=== PATIENT | female | born 1965 | race Caucasian/White ===

== ENCOUNTER 2019-04-11 20:13 | Inpatient (IN) ==
[2019-04-11 21:04] LABS: Bilirubin,Urine Negative (Negative); Blood,Urine Negative (Negative); Clarity,Urine Turbid (Clear); Color,Urine Yellow (Yellow); Glucose,Urine (UA) Normal (Normal); Ketones,Urine Trace mg/dL (Negative); Leukocyte Esterase,Urine Large (Negative); Nitrite,Urine Negative (Negative); Protein,Urine Negative (Neg-Trace); Specific Gravity,Urine 1.019 (1.010-1.025); Urobilinogen,Urine Normal (Normal)
[2019-04-11 21:06] LABS: Bacteria,Urine Many per hpf (None-Few); Hyaline Casts,Urine Few per lpf (None-Few); Squamous Epithelial Cell,Urine Many per lpf (None-Few); WBC,Urine 50-100 per hpf (0-3)
[2019-04-11 21:07] LABS: Basophils # 0.1 K/mcL (0.0-0.2); Basophils % 0.5 %; Eosinophils # 0.3 K/mcL (0.0-0.6); Hematocrit 40.3 % (35.3-44.9); Hemoglobin 12.9 g/dL (11.5-15.4); Immature Granulocytes % 0.3 % (0-4); Lymphocytes % 20.9 %; Mean Corpuscular Hemoglobin 29.9 pg (28.0-33.3); Mean Corpuscular Volume 93.3 fL (83.0-100.0); Monocytes # 1.1 K/mcL (0.0-1.3); Monocytes % 11.1 %; Neutrophils # 6.1 K/mcL (1.6-8.9); Platelet Count 264 K/mcL (140-400); Red Blood Count 4.32 M/mcL (3.82-4.97); Red Cell Distribution Width 13.1 % (11.5-14.5); Segmented Neutrophils % 64.2 %; White Blood Count 9.6 K/mcL (4.3-11.1)
[2019-04-11 21:15] LABS: Amphetamine Screen,Urine Negative ng/mL (Cutoff=1000); Barbiturate Screen,Urine Negative ng/mL (Cutoff=200); Benzodiazepines Screen,Urine Negative ng/mL (Cutoff=200); Cannabinoid Screen,Urine Negative ng/mL (Cutoff = 50); Cocaine Screen,Urine Negative ng/mL (Cutoff= 300); Opiate Screen,Urine Negative ng/mL (Cutoff=300); Phencyclidine Screen,Urine Negative ng/mL (Cutoff=25)
[2019-04-11 21:27] LABS: Acetaminophen < 10 mcg/mL (10-20); BUN/Creatinine Ratio 13 (6-26); Blood Urea Nitrogen 11 mg/dL (6-20); Calcium 10.1 mg/dL (8.6-10.3); Carbon Dioxide 22 mEq/L (23-29); Chloride 106 mEq/L (98-107); Ethanol < 10 mg/dL (Less than 10); Glucose 112 mg/dL (70-105); Osmolality,Calculated 288 (280-300); Potassium 3.1 mEq/L (3.5-5.1); Salicylate < 2.5 mg/dL (15.0-30.0); Sodium 139 mEq/L (136-145); eGFR For African Americans > 60 (> 60); eGFR For Non-African Americans > 60 (> 60)
[2019-04-11] MEDS ORDERED: cephALEXin 250 MG CAPSULE PO ONE (21:34)
[2019-04-11] MEDS ORDERED: Potassium Effervescent 25 MEQ TABLET.EFF PO ONE (21:34)
[2019-04-11] MEDS ORDERED: *HR* LORazepam 2 MG/ML VIAL IM ONE (23:45)
[2019-04-11] MEDS ORDERED: Haloperidol Lactate 5 MG/ML VIAL IM ONE (23:45)
[2019-04-12] MEDS ORDERED: *HR* LORazepam 1 MG TABLET PO PRN (00:49)
[2019-04-12] MEDS ORDERED: Ibuprofen 400 MG TABLET PO PRN (00:49)
[2019-04-12] MEDS ORDERED: MOM Conc 10 ML UD.LIQ PO PRN (00:49)
[2019-04-12] MEDS ORDERED: Mag Hydrox/Al Hydrox/Simeth 30 ML UDC PO PRN (00:49)
[2019-04-12] MEDS ORDERED: *HR* LORazepam 2 MG/ML VIAL IM PRN (00:49)
[2019-04-12] MEDS: Famotidine 20 MG TABLET PO SCH (09:56)
[2019-04-12] MEDS: hydrOXYzine pamoate 25 MG CAPSULE PO PRN ×3 (09:56→21:48)
[2019-04-12] MEDS: risperiDONE 0.25 MG TABLET PO SCH ×2 (09:57→21:48)
[2019-04-12] MEDS: OXcarbazepine 150 MG TABLET PO SCH ×2 (09:58→21:48)
[2019-04-12] MEDS ORDERED: Ipratropium/Albuterol Neb 3 ML IH PRN (10:00)
[2019-04-12 11:58] LABS: Estimated Average Glucose 108 mg/dl
[2019-04-12] MEDS: traZODone 50 MG TABLET PO PRN (21:48)
[2019-04-13] MEDS: hydrOXYzine pamoate 25 MG CAPSULE PO PRN (04:15)
[2019-04-13] MEDS: risperiDONE 0.25 MG TABLET PO SCH ×2 (08:44→21:10)
[2019-04-13] MEDS: OXcarbazepine 150 MG TABLET PO SCH ×2 (08:45→21:11)
[2019-04-13] MEDS: Famotidine 20 MG TABLET PO SCH (08:45)
[2019-04-14] MEDS: traZODone 50 MG TABLET PO PRN ×2 (01:07→21:34)
[2019-04-14] MEDS: OXcarbazepine 150 MG TABLET PO SCH ×2 (08:46→21:34)
[2019-04-14] MEDS: Famotidine 20 MG TABLET PO SCH (08:46)
[2019-04-14] MEDS: risperiDONE 0.25 MG TABLET PO SCH ×2 (08:46→21:34)
[2019-04-15] MEDS: OXcarbazepine 150 MG TABLET PO SCH ×2 (09:28→20:32)
[2019-04-15] MEDS: Famotidine 20 MG TABLET PO SCH (09:28)
[2019-04-15] MEDS: risperiDONE 0.25 MG TABLET PO SCH ×2 (09:29→20:31)
[2019-04-15] MEDS: traZODone 50 MG TABLET PO PRN (20:32)
[2019-04-15] MEDS: hydrOXYzine pamoate 25 MG CAPSULE PO PRN (20:32)
[2019-04-16] MEDS: OXcarbazepine 150 MG TABLET PO SCH ×2 (08:03→21:12)
[2019-04-16] MEDS: Famotidine 20 MG TABLET PO SCH (08:03)
[2019-04-16] MEDS: risperiDONE 0.25 MG TABLET PO SCH (08:04)
[2019-04-16] MEDS: traZODone 50 MG TABLET PO PRN (21:12)
[2019-04-16] MEDS: hydrOXYzine pamoate 25 MG CAPSULE PO PRN (21:12)
[2019-04-16] MEDS: risperiDONE 1 MG TABLET PO SCH (21:12)
[2019-04-17] MEDS: Famotidine 20 MG TABLET PO SCH (08:43)
[2019-04-17] MEDS: OXcarbazepine 150 MG TABLET PO SCH ×2 (08:44→21:20)
[2019-04-17] MEDS: risperiDONE 1 MG TABLET PO SCH ×2 (08:44→21:20)
[2019-04-17] MEDS: hydrOXYzine pamoate 25 MG CAPSULE PO PRN (21:20)
[2019-04-17] MEDS: traZODone 50 MG TABLET PO PRN (21:20)
[2019-04-18] MEDS: hydrOXYzine pamoate 25 MG CAPSULE PO PRN ×2 (02:28→21:21)
[2019-04-18] MEDS: OXcarbazepine 150 MG TABLET PO SCH ×2 (09:14→21:21)
[2019-04-18] MEDS: Famotidine 20 MG TABLET PO SCH (09:14)
[2019-04-18] MEDS: risperiDONE 1 MG TABLET PO SCH ×2 (09:15→21:20)
[2019-04-18] MEDS: traZODone 50 MG TABLET PO PRN (21:21)
[2019-04-19] MEDS: risperiDONE 1 MG TABLET PO SCH ×2 (09:58→21:14)
[2019-04-19] MEDS: Famotidine 20 MG TABLET PO SCH (09:58)
[2019-04-19] MEDS: OXcarbazepine 150 MG TABLET PO SCH ×2 (09:59→21:14)
[2019-04-19] MEDS: hydrOXYzine pamoate 25 MG CAPSULE PO PRN (21:18)
[2019-04-20] MEDS: risperiDONE 1 MG TABLET PO SCH (08:35)
[2019-04-20] MEDS: Famotidine 20 MG TABLET PO SCH (08:36)
[2019-04-20] MEDS: OXcarbazepine 150 MG TABLET PO SCH (08:36)
[2019-04-20 09:16] VITALS: BP 146/85
== END 2019-04-20 10:55 | disposition home or self-care (01) | DRG 885 ==
LOC: EMEROOARM 20:13 → 1ANU 23:56
PROVIDERS: ADMIT Psychiatry & Neurology Psychiatry; ATTEND Psychiatry & Neurology Psychiatry

== ENCOUNTER 2021-10-02 10:48 | Inpatient (IN) ==
[2021-10-02 11:33] LABS: Basophils # 0.1 K/mcL (0.0-0.2); Basophils % 0.7 %; Eosinophils % 0.3 %; Hematocrit 47.4 % (35.3-44.9); Hemoglobin 15.6 g/dL (11.5-15.4); Immature Granulocytes % 0.3 % (0-4); Lymphocytes # 1.6 K/mcL (0.6-4.6); Mean Corpuscular HGB Conc 32.9 g/dL (31.6-35.5); Mean Corpuscular Hemoglobin 30.2 pg (28.0-33.3); Mean Corpuscular Volume 91.9 fL (83.0-100.0); Mean Platelet Volume 9.5 fL (9.4-12.4); Monocytes # 0.6 K/mcL (0.0-1.3); Neutrophils # 5.1 K/mcL (1.6-8.9); Platelet Count 277 K/mcL (140-400); Red Blood Count 5.16 M/mcL (3.82-4.97); Red Cell Distribution Width 13.6 % (11.5-14.5); Segmented Neutrophils % 68.7 %; White Blood Count 7.4 K/mcL (4.3-11.1)
[2021-10-02 11:52] LABS: Acetaminophen < 10 mcg/mL (10-20); BUN/Creatinine Ratio 16 (6-26); Blood Urea Nitrogen 16 mg/dL (6-20); Carbon Dioxide 20 mEq/L (23-29); Chloride 107 mEq/L (98-107); Ethanol < 10 mg/dL (Less than 10); Glucose 129 mg/dL (70-105); Osmolality,Calculated 289 (280-300); Potassium 3.7 mEq/L (3.5-5.1); Salicylate < 2.5 mg/dL (15.0-30.0); Sodium 138 mEq/L (136-145); eGFR For African Americans > 60 (> 60); eGFR For Non-African Americans 59 (> 60)
[2021-10-02 12:02] LABS: Bilirubin,Urine Negative (Negative); Blood,Urine Trace (Negative); Clarity,Urine Clear (Clear); Color,Urine Yellow (Yellow); Glucose,Urine (UA) Normal (Normal); Ketones,Urine Negative (Negative); Leukocyte Esterase,Urine Moderate (Negative); Nitrite,Urine Negative (Negative); Protein,Urine 50 mg/dL (Neg-Trace); Specific Gravity,Urine > 1.030 (1.010-1.025); Urobilinogen,Urine Normal (Normal)
[2021-10-02 12:06] LABS: WBC,Urine 15-30 per hpf (0-3)
[2021-10-02 12:07] LABS: Bacteria,Urine Few per hpf (None-Few); Squamous Epithelial Cell,Urine Few per hpf (None-Few)
[2021-10-02] MEDS ORDERED: cephALEXin 500 MG CAPSULE PO ONE (12:09)
[2021-10-02 12:15] LABS: Amphetamine Screen,Urine Negative ng/mL (Cutoff=1000); Barbiturate Screen,Urine Negative ng/mL (Cutoff=200); Benzodiazepines Screen,Urine Negative ng/mL (Cutoff=200); Cannabinoid Screen,Urine Negative ng/mL (Cutoff = 50); Cocaine Screen,Urine Negative ng/mL (Cutoff= 300); Opiate Screen,Urine Negative ng/mL (Cutoff=300); Phencyclidine Screen,Urine Negative ng/mL (Cutoff=25)
[2021-10-02] MEDS ORDERED: OXcarbazepine 150 MG TABLET PO ONE (14:54)
[2021-10-02] MEDS ORDERED: risperiDONE 1 MG TABLET PO SCH (15:00)
[2021-10-02 18:27] LABS: Influenza A PCR Negative (Negative); Influenza B PCR Negative (Negative); Resp. Syncytial Virus PCR Negative (Negative)
[2021-10-02 18:39] LABS: SARS-CoV-2 by PCR (In House) Negative (Negative)
[2021-10-02] MEDS ORDERED: *HR* LORazepam 2 MG/ML VIAL IM PRN (19:49)
[2021-10-02] MEDS ORDERED: Haloperidol Lactate 5 MG/ML VIAL IM PRN (19:49)
[2021-10-03] MEDS: Acetaminophen 325 MG TABLET PO PRN ×3 (02:00→20:14)
[2021-10-03] MEDS: QUEtiapine Fumarate 25 MG TABLET PO PRN ×2 (02:00→20:14)
[2021-10-03] MEDS: hydrOXYzine pamoate 25 MG CAPSULE PO PRN ×2 (02:01→20:13)
[2021-10-03] MEDS ORDERED: Mag Hydrox/Al Hydrox/Simeth 30 ML UDC PO PRN (02:02)
[2021-10-03] MEDS: haloperidoL 5 MG TABLET PO PRN (03:09)
[2021-10-03] MEDS: *HR* LORazepam 1 MG TABLET PO PRN (03:09)
[2021-10-03] MEDS: risperiDONE 1 MG TABLET PO SCH ×2 (09:10→20:13)
[2021-10-03] MEDS: OXcarbazepine 150 MG TABLET PO SCH ×2 (09:10→20:13)
[2021-10-03] MEDS: lisinopriL 10 MG TABLET PO SCH (11:27)
[2021-10-03] MEDS: Gabapentin 100 MG CAPSULE PO SCH (20:13)
[2021-10-03] MEDS ORDERED: chlorproMAZINE 25 MG TABLET PO STA (21:51)
[2021-10-04] MEDS: Acetaminophen 325 MG TABLET PO PRN ×2 (05:30→11:03)
[2021-10-04] MEDS: OXcarbazepine 150 MG TABLET PO SCH ×2 (08:49→20:51)
[2021-10-04] MEDS: lisinopriL 10 MG TABLET PO SCH (08:49)
[2021-10-04] MEDS: Gabapentin 100 MG CAPSULE PO SCH ×2 (08:49→20:51)
[2021-10-04] MEDS: risperiDONE 1 MG TABLET PO SCH ×2 (08:49→20:51)
[2021-10-04] MEDS: QUEtiapine Fumarate 25 MG TABLET PO PRN (20:51)
[2021-10-04] MEDS: hydrOXYzine pamoate 25 MG CAPSULE PO PRN (21:43)
[2021-10-05] MEDS: OXcarbazepine 150 MG TABLET PO SCH ×2 (09:06→20:58)
[2021-10-05] MEDS: Gabapentin 100 MG CAPSULE PO SCH ×2 (09:06→20:57)
[2021-10-05] MEDS: risperiDONE 1 MG TABLET PO SCH ×2 (09:06→20:58)
[2021-10-05] MEDS: lisinopriL 10 MG TABLET PO SCH ×2 (09:06→09:40)
[2021-10-05] MEDS ORDERED: NON-FORMULARY MEDICATION 1 EACH EACH (Albuterol Sulfate 8.5 GM Hfa.Aer.Ad) IH PRN (09:23)
[2021-10-05] MEDS ORDERED: NON-FORMULARY MEDICATION 1 EACH EACH (Famotidine [Pepcid] 40 MG Tablet) PO SCH (09:30)
[2021-10-05] MEDS: Famotidine 20 MG TABLET PO SCH ×2 (09:40→20:58)
[2021-10-05 13:42] LABS: Estimated Average Glucose 108 mg/dl; Hemoglobin A1C 5.4 %
[2021-10-05 14:11] LABS: Albumin 3.8 g/dL (3.5-5.7); Albumin/Globulin Ratio 1.2 (1.1-2.2); Bilirubin,Indirect 0.4 mg/dL (0.0-1.0); Bilirubin,Total 0.4 mg/dL (0.3-1.0); Chol/HDL Ratio 2.5 (0-4.9); Globulin 3.2 g/dL (2.4-3.5); Thyroid Stimulating Hormone 0.624 mcIU/mL (0.340-5.600)
[2021-10-05] MEDS: Acetaminophen 325 MG TABLET PO PRN (18:47)
[2021-10-05] MEDS: hydrOXYzine pamoate 25 MG CAPSULE PO PRN (18:48)
[2021-10-05 19:45] LABS: Bacteria,Urine Few per hpf (None-Few); Bilirubin,Urine Negative (Negative); Blood,Urine Negative (Negative); Clarity,Urine Clear (Clear); Color,Urine Light-Yellow (Yellow); Glucose,Urine (UA) Normal (Normal); Ketones,Urine Negative (Negative); Leukocyte Esterase,Urine Large (Negative); Mucus,Urine Few per lpf (None-Few); Nitrite,Urine Negative (Negative); PH,Urine 5.5 pH Units (5.0-8.0); Protein,Urine Trace mg/dL (Neg-Trace); RBC,Urine 0-3 per hpf (0-3); Renal Epithelial Cells,Urine Few per hpf (None-Few); Specific Gravity,Urine 1.025 (1.010-1.025); Squamous Epithelial Cell,Urine Few per hpf (None-Few); Transitional Epi Cells,Urine Few per hpf (None-Few); Urobilinogen,Urine Normal (Normal); WBC,Urine 15-30 per hpf (0-3)
[2021-10-05] MEDS: QUEtiapine Fumarate 100 MG TABLET PO SCH (20:58)
[2021-10-06] MEDS: risperiDONE 1 MG TABLET PO SCH (08:37)
[2021-10-06] MEDS: Gabapentin 100 MG CAPSULE PO SCH ×2 (08:38→20:52)
[2021-10-06] MEDS: lisinopriL 10 MG TABLET PO SCH (08:38)
[2021-10-06] MEDS: Famotidine 20 MG TABLET PO SCH ×2 (08:39→20:52)
[2021-10-06] MEDS: OXcarbazepine 150 MG TABLET PO SCH ×2 (08:39→20:52)
[2021-10-06] MEDS: QUEtiapine Fumarate 100 MG TABLET PO SCH (20:52)
[2021-10-06] MEDS ORDERED: RisperiDAL 3 MG TABLET PO SCH (21:00)
[2021-10-07] MEDS ORDERED: risperiDONE 1 MG TABLET PO SCH (09:00)
[2021-10-07] MEDS: Famotidine 20 MG TABLET PO SCH ×2 (10:02→20:58)
[2021-10-07] MEDS: OXcarbazepine 150 MG TABLET PO SCH ×2 (10:02→20:57)
[2021-10-07] MEDS: lisinopriL 10 MG TABLET PO SCH (10:04)
[2021-10-07] MEDS: Gabapentin 100 MG CAPSULE PO SCH ×2 (10:04→20:58)
[2021-10-07] MEDS: hydrOXYzine pamoate 25 MG CAPSULE PO PRN (10:08)
[2021-10-07] MEDS: *HR* LORazepam 1 MG TABLET PO PRN (10:33)
[2021-10-07] MEDS: haloperidoL 5 MG TABLET PO PRN (10:33)
[2021-10-07] MEDS: QUEtiapine Fumarate 100 MG TABLET PO SCH (20:58)
[2021-10-07] MEDS: RisperiDAL 3 MG TABLET PO SCH (20:58)
[2021-10-08] MEDS: Gabapentin 100 MG CAPSULE PO SCH ×2 (09:14→21:57)
[2021-10-08] MEDS: lisinopriL 10 MG TABLET PO SCH (09:15)
[2021-10-08] MEDS: RisperiDAL 3 MG TABLET PO SCH ×2 (09:15→21:56)
[2021-10-08] MEDS: Famotidine 20 MG TABLET PO SCH ×2 (09:15→21:57)
[2021-10-08] MEDS: OXcarbazepine 150 MG TABLET PO SCH ×2 (09:15→21:56)
[2021-10-08 13:08] LABS: Basophils # 0.1 K/mcL (0.0-0.2); Basophils % 0.7 %; Eosinophils # 0.2 K/mcL (0.0-0.6); Hematocrit 41.2 % (35.3-44.9); Immature Granulocytes % 0.1 % (0-4); Lymphocytes # 1.8 K/mcL (0.6-4.6); Lymphocytes % 23.9 %; Mean Corpuscular HGB Conc 33.3 g/dL (31.6-35.5); Mean Corpuscular Volume 93.2 fL (83.0-100.0); Mean Platelet Volume 9.2 fL (9.4-12.4); Monocytes # 0.6 K/mcL (0.0-1.3); Platelet Count 276 K/mcL (140-400); Red Blood Count 4.42 M/mcL (3.82-4.97); Red Cell Distribution Width 14.1 % (11.5-14.5); Segmented Neutrophils % 65.3 %; White Blood Count 7.6 K/mcL (4.3-11.1)
[2021-10-08 13:15] LABS: Hemoglobin 13.7 g/dL (11.5-15.4)
[2021-10-08 13:29] LABS: Alanine Aminotransferase 28 Units/L (7-52); Albumin 3.8 g/dL (3.5-5.7); Albumin/Globulin Ratio 1.2 (1.1-2.2); Alkaline Phosphatase 110 Units/L (34-104); Aspartate Amino Transferase 21 Units/L (13-39); BUN/Creatinine Ratio 26 (6-26); Bilirubin,Total 0.3 mg/dL (0.3-1.0); Blood Urea Nitrogen 22 mg/dL (6-20); Calcium 9.6 mg/dL (8.6-10.3); Carbon Dioxide 22 mEq/L (23-29); Chloride 106 mEq/L (98-107); Globulin 3.1 g/dL (2.4-3.5); Glucose 90 mg/dL (70-105); Osmolality,Calculated 289 (280-300); Potassium 4.3 mEq/L (3.5-5.1); Sodium 138 mEq/L (136-145); Total Protein 6.9 g/dL (6.4-8.9); eGFR For African Americans > 60 (> 60); eGFR For Non-African Americans > 60 (> 60)
[2021-10-08] MEDS: *HR* LORazepam 1 MG TABLET PO PRN (15:10)
[2021-10-08] MEDS: haloperidoL 5 MG TABLET PO PRN (15:10)
[2021-10-08] MEDS: QUEtiapine Fumarate 100 MG TABLET PO SCH (21:56)
[2021-10-09] MEDS: OXcarbazepine 150 MG TABLET PO SCH ×2 (09:12→20:27)
[2021-10-09] MEDS: Gabapentin 100 MG CAPSULE PO SCH ×2 (09:12→20:27)
[2021-10-09] MEDS: lisinopriL 10 MG TABLET PO SCH (09:12)
[2021-10-09] MEDS: Famotidine 20 MG TABLET PO SCH ×2 (09:12→20:26)
[2021-10-09] MEDS: RisperiDAL 3 MG TABLET PO SCH ×2 (09:13→20:26)
[2021-10-09] MEDS ORDERED: Paliperidone Palmitate 234 MG/1.5 ML SYRINGE IM SCH (10:30)
[2021-10-09] MEDS: *HR* LORazepam 0.5 MG TABLET PO SCH ×3 (11:51→20:26)
[2021-10-09] MEDS ORDERED: Perflutren Lipid Microsphere 1.3 ML in 0.9 % Sodium Chloride 8.7 ML IVP PRN (13:52)
[2021-10-09 14:20] LABS: BUN/Creatinine Ratio 21 (6-26); Blood Urea Nitrogen 21 mg/dL (6-20); Calcium 9.9 mg/dL (8.6-10.3); Carbon Dioxide 22 mEq/L (23-29); Chloride 104 mEq/L (98-107); Glucose 104 mg/dL (70-105); Osmolality,Calculated 285 (280-300); Potassium 4.2 mEq/L (3.5-5.1); Sodium 136 mEq/L (136-145); eGFR For African Americans > 60 (> 60); eGFR For Non-African Americans 58 (> 60)
[2021-10-09] MEDS ORDERED: Isovue-370 500 ML BOTTLE IVP ONE ×2 (15:32→18:00)
[2021-10-09 16:58] LABS: Bacteria,Urine Few per hpf (None-Few); Bilirubin,Urine Negative (Negative); Blood,Urine Negative (Negative); Clarity,Urine Clear (Clear); Color,Urine Light-Yellow (Yellow); Glucose,Urine (UA) Normal (Normal); Hyaline Casts,Urine Few per lpf (None Seen); Ketones,Urine Negative (Negative); Leukocyte Esterase,Urine Moderate (Negative); Mucus,Urine Few per lpf (None-Few); Nitrite,Urine Negative (Negative); PH,Urine 5.5 pH Units (5.0-8.0); Protein,Urine Negative (Neg-Trace); RBC,Urine 0-3 per hpf (0-3); Specific Gravity,Urine 1.022 (1.010-1.025); Squamous Epithelial Cell,Urine Few per hpf (None-Few); Urobilinogen,Urine Normal (Normal); WBC,Urine 15-30 per hpf (0-3)
[2021-10-09] MEDS: QUEtiapine Fumarate 100 MG TABLET PO SCH (20:26)
[2021-10-10] MEDS: Famotidine 20 MG TABLET PO SCH ×2 (09:05→21:11)
[2021-10-10] MEDS: Gabapentin 100 MG CAPSULE PO SCH ×2 (09:05→21:11)
[2021-10-10] MEDS: OXcarbazepine 150 MG TABLET PO SCH ×2 (09:05→21:11)
[2021-10-10] MEDS: *HR* LORazepam 0.5 MG TABLET PO SCH ×3 (09:05→21:11)
[2021-10-10] MEDS: RisperiDAL 3 MG TABLET PO SCH (09:05)
[2021-10-10] MEDS: lisinopriL 10 MG TABLET PO SCH (09:05)
[2021-10-10] MEDS: QUEtiapine Fumarate 100 MG TABLET PO SCH (21:11)
[2021-10-11] MEDS: *HR* LORazepam 0.5 MG TABLET PO SCH ×3 (08:33→20:28)
[2021-10-11] MEDS: OXcarbazepine 150 MG TABLET PO SCH ×2 (08:34→20:27)
[2021-10-11] MEDS: lisinopriL 10 MG TABLET PO SCH (08:34)
[2021-10-11] MEDS: Famotidine 20 MG TABLET PO SCH ×2 (08:34→20:28)
[2021-10-11] MEDS: Gabapentin 100 MG CAPSULE PO SCH ×2 (08:34→20:28)
[2021-10-11] MEDS: QUEtiapine Fumarate 100 MG TABLET PO SCH (20:27)
[2021-10-12] MEDS: *HR* LORazepam 0.5 MG TABLET PO SCH ×3 (08:35→21:49)
[2021-10-12] MEDS: Famotidine 20 MG TABLET PO SCH ×2 (08:35→21:49)
[2021-10-12] MEDS: Gabapentin 100 MG CAPSULE PO SCH ×2 (08:35→21:48)
[2021-10-12] MEDS: lisinopriL 10 MG TABLET PO SCH (08:35)
[2021-10-12] MEDS: OXcarbazepine 150 MG TABLET PO SCH ×2 (08:37→21:49)
[2021-10-12] MEDS: QUEtiapine Fumarate 100 MG TABLET PO SCH (21:49)
[2021-10-13] MEDS: Gabapentin 100 MG CAPSULE PO SCH (08:15)
[2021-10-13] MEDS: OXcarbazepine 150 MG TABLET PO SCH (08:16)
[2021-10-13] MEDS: *HR* LORazepam 0.5 MG TABLET PO SCH (08:16)
[2021-10-13] MEDS: Famotidine 20 MG TABLET PO SCH (08:19)
[2021-10-13] MEDS: lisinopriL 10 MG TABLET PO SCH (08:20)
[2021-10-13 09:10] VITALS: BP 132/87; PULSE 99; TEMP 98.1; O2SAT 97
[2021-10-13] MEDS ORDERED: Paliperidone Palmitate 156 MG/ML SYRINGE IM SCH (11:45)
== END 2021-10-13 13:00 | disposition home or self-care (01) | DRG 885 ==
LOC: EMEROOARM 10:48 → 1ANU 19:34 → SUATTDRO 19:34 → 1ANU 21:21
PROVIDERS: ADMIT Psychiatry & Neurology Psychiatry; ATTEND Student in an Organized Health Care Education/Training Program

== ENCOUNTER 2021-10-15 10:48 | Inpatient (IN) ==
[2021-10-15 11:59] LABS: Basophils % 0.5 %; Eosinophils % 0.3 %; Hematocrit 44.1 % (35.3-44.9); Hemoglobin 14.5 g/dL (11.5-15.4); Immature Granulocytes % 0.5 % (0-4); Lymphocytes # 1.3 K/mcL (0.6-4.6); Lymphocytes % 15.6 %; Mean Corpuscular HGB Conc 32.9 g/dL (31.6-35.5); Mean Corpuscular Hemoglobin 29.8 pg (28.0-33.3); Mean Corpuscular Volume 90.7 fL (83.0-100.0); Mean Platelet Volume 9.1 fL (9.4-12.4); Monocytes # 0.5 K/mcL (0.0-1.3); Monocytes % 5.6 %; Neutrophils # 6.7 K/mcL (1.6-8.9); Platelet Count 352 K/mcL (140-400); Red Blood Count 4.86 M/mcL (3.82-4.97); Red Cell Distribution Width 13.6 % (11.5-14.5); Segmented Neutrophils % 77.5 %; White Blood Count 8.6 K/mcL (4.3-11.1)
[2021-10-15 12:05] LABS: Acetaminophen < 10 mcg/mL (10-20); BUN/Creatinine Ratio 16 (6-26); Blood Urea Nitrogen 13 mg/dL (6-20); Calcium 10.1 mg/dL (8.6-10.3); Carbon Dioxide 19 mEq/L (23-29); Chloride 108 mEq/L (98-107); Chol/HDL Ratio 4.1 (0-4.9); Cholesterol 258 mg/dL (< 200); Ethanol < 10 mg/dL (Less than 10); Glucose 113 mg/dL (70-105); HDL Cholesterol 63 mg/dL (40-59); LDL Cholesterol,Calculated 164 mg/dL (< 100); Osmolality,Calculated 287 (280-300); Potassium 4.2 mEq/L (3.5-5.1); Salicylate < 2.5 mg/dL (15.0-30.0); Sodium 138 mEq/L (136-145); Triglycerides 155 mg/dL (< 150); eGFR For African Americans > 60 (> 60); eGFR For Non-African Americans > 60 (> 60)
[2021-10-15 12:44] LABS: Bilirubin,Urine Negative (Negative); Blood,Urine Negative (Negative); Clarity,Urine Clear (Clear); Color,Urine Light-Yellow (Yellow); Glucose,Urine (UA) Normal (Normal); Ketones,Urine Negative (Negative); Leukocyte Esterase,Urine Negative (Negative); Nitrite,Urine Negative (Negative); PH,Urine 5.5 pH Units (5.0-8.0); Protein,Urine Trace mg/dL (Neg-Trace); Specific Gravity,Urine 1.019 (1.010-1.025); Urobilinogen,Urine Normal (Normal)
[2021-10-15] MEDS ORDERED: *HR* LORazepam 1 MG TABLET PO ONE ×2 (12:45→16:49)
[2021-10-15 12:54] LABS: Amphetamine Screen,Urine Negative ng/mL (Cutoff=1000); Barbiturate Screen,Urine Negative ng/mL (Cutoff=200); Benzodiazepines Screen,Urine Negative ng/mL (Cutoff=200); Cannabinoid Screen,Urine Negative ng/mL (Cutoff = 50); Cocaine Screen,Urine Negative ng/mL (Cutoff= 300); Opiate Screen,Urine Negative ng/mL (Cutoff=300); Phencyclidine Screen,Urine Negative ng/mL (Cutoff=25)
[2021-10-15 13:13] LABS: Estimated Average Glucose 108 mg/dl; Hemoglobin A1C 5.4 %
[2021-10-15 16:47] LABS: Influenza A PCR Negative (Negative); Influenza B PCR Negative (Negative); Resp. Syncytial Virus PCR Negative (Negative)
[2021-10-15 16:49] LABS: SARS-CoV-2 by PCR (In House) Negative (Negative)
[2021-10-15] MEDS ORDERED: *HR* LORazepam 2 MG/ML VIAL IM PRN (16:56)
[2021-10-15] MEDS ORDERED: Acetaminophen 325 MG TABLET PO PRN (16:56)
[2021-10-15] MEDS ORDERED: *HR* LORazepam 1 MG TABLET PO PRN (16:56)
[2021-10-15] MEDS ORDERED: hydrOXYzine pamoate 25 MG CAPSULE PO PRN (16:56)
[2021-10-15] MEDS ORDERED: traZODone 50 MG TABLET PO PRN (16:56)
[2021-10-15] MEDS ORDERED: haloperidoL 5 MG TABLET PO PRN (16:56)
[2021-10-15] MEDS ORDERED: Haloperidol Lactate 5 MG/ML VIAL IM PRN (16:56)
[2021-10-15] MEDS: OXcarbazepine 150 MG TABLET PO SCH (21:48)
[2021-10-15] MEDS: *HR* LORazepam 0.5 MG TABLET PO SCH (21:49)
[2021-10-15] MEDS: QUEtiapine Fumarate 100 MG TABLET PO SCH (21:49)
[2021-10-15] MEDS: Gabapentin 100 MG CAPSULE PO SCH (21:49)
[2021-10-15] MEDS: Famotidine 20 MG TABLET PO SCH (21:49)
[2021-10-16] MEDS ORDERED: Mag Hydrox/Al Hydrox/Simeth 30 ML UDC PO PRN (08:02)
[2021-10-16] MEDS ORDERED: MOM Conc 10 ML UD.LIQ PO PRN (08:02)
[2021-10-16] MEDS ORDERED: lisinopriL 10 MG TABLET PO SCH (09:00)
[2021-10-16] MEDS: OXcarbazepine 150 MG TABLET PO SCH ×2 (09:05→22:08)
[2021-10-16] MEDS: Loratadine 10 MG TABLET PO SCH (09:07)
[2021-10-16] MEDS: *HR* LORazepam 0.5 MG TABLET PO SCH ×3 (09:08→22:08)
[2021-10-16] MEDS: Gabapentin 100 MG CAPSULE PO SCH ×2 (09:08→22:08)
[2021-10-16] MEDS: QUEtiapine Fumarate 100 MG TABLET PO SCH (22:07)
[2021-10-16] MEDS: Lithium Carbonate 300 MG CAPSULE PO SCH (22:08)
[2021-10-16] MEDS: Famotidine 20 MG TABLET PO SCH (22:08)
[2021-10-17] MEDS: OXcarbazepine 150 MG TABLET PO SCH ×2 (07:49→21:00)
[2021-10-17] MEDS: Loratadine 10 MG TABLET PO SCH (07:51)
[2021-10-17] MEDS: Gabapentin 100 MG CAPSULE PO SCH ×2 (07:53→21:00)
[2021-10-17] MEDS: *HR* LORazepam 0.5 MG TABLET PO SCH ×3 (07:55→21:01)
[2021-10-17] MEDS: Famotidine 20 MG TABLET PO SCH (21:00)
[2021-10-17] MEDS: QUEtiapine Fumarate 100 MG TABLET PO SCH (21:01)
[2021-10-17] MEDS: Lithium Carbonate 300 MG CAPSULE PO SCH (21:01)
[2021-10-18] MEDS: Gabapentin 100 MG CAPSULE PO SCH ×2 (09:28→21:38)
[2021-10-18] MEDS: OXcarbazepine 150 MG TABLET PO SCH ×2 (09:28→21:37)
[2021-10-18] MEDS: *HR* LORazepam 0.5 MG TABLET PO SCH ×3 (09:29→21:37)
[2021-10-18] MEDS: Loratadine 10 MG TABLET PO SCH (09:30)
[2021-10-18] MEDS: Lithium Carbonate 300 MG CAPSULE PO SCH (21:37)
[2021-10-18] MEDS: QUEtiapine Fumarate 100 MG TABLET PO SCH (21:37)
[2021-10-18] MEDS: Famotidine 20 MG TABLET PO SCH (21:37)
[2021-10-19] MEDS: OXcarbazepine 150 MG TABLET PO SCH ×2 (08:33→20:25)
[2021-10-19] MEDS: *HR* LORazepam 0.5 MG TABLET PO SCH ×3 (08:34→20:25)
[2021-10-19] MEDS: Gabapentin 100 MG CAPSULE PO SCH (08:35)
[2021-10-19] MEDS: Loratadine 10 MG TABLET PO SCH (08:36)
[2021-10-19] MEDS ORDERED: Gabapentin 100 MG CAPSULE PO PRN (09:47)
[2021-10-19] MEDS ORDERED: Loratadine 10 MG TABLET PO PRN (09:48)
[2021-10-19] MEDS: Ergocalciferol (VIT D2) 50,000 UNIT (1.25MG) CAP PO SCH (13:09)
[2021-10-19 15:22] LABS: Basophils # 0.1 K/mcL (0.0-0.2); Basophils % 0.8 %; Eosinophils # 0.3 K/mcL (0.0-0.6); Eosinophils % 3.6 %; Hematocrit 41.4 % (35.3-44.9); Hemoglobin 13.2 g/dL (11.5-15.4); Immature Granulocytes % 0.1 % (0-4); Lymphocytes % 27.5 %; Mean Corpuscular HGB Conc 31.9 g/dL (31.6-35.5); Mean Corpuscular Volume 94.1 fL (83.0-100.0); Mean Platelet Volume 9.6 fL (9.4-12.4); Monocytes # 0.6 K/mcL (0.0-1.3); Monocytes % 8.9 %; Neutrophils # 4.3 K/mcL (1.6-8.9); Platelet Count 321 K/mcL (140-400); Red Cell Distribution Width 13.6 % (11.5-14.5); Segmented Neutrophils % 59.1 %; White Blood Count 7.2 K/mcL (4.3-11.1)
[2021-10-19 15:45] LABS: Alanine Aminotransferase 31 Units/L (7-52); Albumin/Globulin Ratio 1.3 (1.1-2.2); Alkaline Phosphatase 112 Units/L (34-104); Aspartate Amino Transferase 16 Units/L (13-39); BUN/Creatinine Ratio 20 (6-26); Bilirubin,Total 0.3 mg/dL (0.3-1.0); Blood Urea Nitrogen 19 mg/dL (6-20); Calcium 9.3 mg/dL (8.6-10.3); Carbon Dioxide 24 mEq/L (23-29); Chloride 106 mEq/L (98-107); Glucose 82 mg/dL (70-105); Osmolality,Calculated 285 (280-300); Potassium 4.5 mEq/L (3.5-5.1); Sodium 137 mEq/L (136-145); eGFR For African Americans > 60 (> 60); eGFR For Non-African Americans 60 (> 60)
[2021-10-19] MEDS: QUEtiapine Fumarate 100 MG TABLET PO SCH (20:25)
[2021-10-19] MEDS: Famotidine 20 MG TABLET PO SCH (20:26)
[2021-10-19] MEDS: Lithium Carbonate 300 MG CAPSULE PO SCH (20:26)
[2021-10-20] MEDS: *HR* LORazepam 0.5 MG TABLET PO SCH ×2 (08:41→20:51)
[2021-10-20] MEDS: OXcarbazepine 150 MG TABLET PO SCH ×2 (08:41→20:51)
[2021-10-20] MEDS: Famotidine 20 MG TABLET PO SCH (20:51)
[2021-10-20] MEDS: Lithium Carbonate 300 MG CAPSULE PO SCH (20:51)
[2021-10-20] MEDS: QUEtiapine Fumarate 100 MG TABLET PO SCH (20:51)
[2021-10-20] MEDS ORDERED: OXcarbazepine 150 MG TABLET PO SCH (21:00)
[2021-10-21] MEDS: OXcarbazepine 150 MG TABLET PO SCH ×2 (09:08→21:37)
[2021-10-21] MEDS: *HR* LORazepam 0.5 MG TABLET PO SCH ×2 (09:08→20:42)
[2021-10-21] MEDS: QUEtiapine Fumarate 100 MG TABLET PO SCH (20:42)
[2021-10-21] MEDS: Famotidine 20 MG TABLET PO SCH (20:42)
[2021-10-21] MEDS: Lithium Carbonate 300 MG CAPSULE PO SCH (20:42)
[2021-10-22] MEDS: Lithium Carbonate 300 MG CAPSULE PO SCH ×2 (09:00→20:13)
[2021-10-22] MEDS: *HR* LORazepam 0.5 MG TABLET PO SCH ×2 (09:00→20:13)
[2021-10-22] MEDS: OXcarbazepine 150 MG TABLET PO SCH ×2 (09:00→20:14)
[2021-10-22] MEDS: Famotidine 20 MG TABLET PO SCH (20:13)
[2021-10-22] MEDS: QUEtiapine Fumarate 100 MG TABLET PO SCH (20:13)
[2021-10-23] MEDS: OXcarbazepine 150 MG TABLET PO SCH ×2 (08:36→21:36)
[2021-10-23] MEDS: *HR* LORazepam 0.5 MG TABLET PO SCH ×2 (08:38→21:36)
[2021-10-23] MEDS: Lithium Carbonate 300 MG CAPSULE PO SCH ×2 (08:38→21:37)
[2021-10-23] MEDS: Fluticasone Propionate Nasal 50 MCG/SPRAY BOTTLE NS SCH (11:00)
[2021-10-23] MEDS: Famotidine 20 MG TABLET PO SCH (21:35)
[2021-10-23] MEDS: QUEtiapine Fumarate 100 MG TABLET PO SCH (21:36)
[2021-10-24] MEDS: *HR* LORazepam 0.5 MG TABLET PO SCH ×2 (08:52→21:38)
[2021-10-24] MEDS: Lithium Carbonate 300 MG CAPSULE PO SCH ×2 (08:53→21:38)
[2021-10-24] MEDS: OXcarbazepine 150 MG TABLET PO SCH ×2 (08:56→21:39)
[2021-10-24] MEDS: Fluticasone Propionate Nasal 50 MCG/SPRAY BOTTLE NS SCH (11:02)
[2021-10-24] MEDS: Famotidine 20 MG TABLET PO SCH (21:37)
[2021-10-24] MEDS: QUEtiapine Fumarate 100 MG TABLET PO SCH (21:39)
[2021-10-25] MEDS: Lithium Carbonate 300 MG CAPSULE PO SCH ×2 (09:01→21:06)
[2021-10-25] MEDS: Fluticasone Propionate Nasal 50 MCG/SPRAY BOTTLE NS SCH (09:01)
[2021-10-25] MEDS: *HR* LORazepam 0.5 MG TABLET PO SCH ×2 (09:01→21:06)
[2021-10-25] MEDS: OXcarbazepine 150 MG TABLET PO SCH ×2 (09:01→21:06)
[2021-10-25] MEDS: QUEtiapine Fumarate 100 MG TABLET PO SCH (21:06)
[2021-10-25] MEDS: Famotidine 20 MG TABLET PO SCH (21:06)
[2021-10-26] MEDS: OXcarbazepine 150 MG TABLET PO SCH ×2 (08:54→20:57)
[2021-10-26] MEDS: Lithium Carbonate 300 MG CAPSULE PO SCH ×2 (08:54→20:57)
[2021-10-26] MEDS: Fluticasone Propionate Nasal 50 MCG/SPRAY BOTTLE NS SCH (08:54)
[2021-10-26] MEDS: *HR* LORazepam 0.5 MG TABLET PO SCH ×2 (08:54→20:57)
[2021-10-26] MEDS: Ergocalciferol (VIT D2) 50,000 UNIT (1.25MG) CAP PO SCH (12:16)
[2021-10-26] MEDS: QUEtiapine Fumarate 100 MG TABLET PO SCH (20:57)
[2021-10-26] MEDS: Famotidine 20 MG TABLET PO SCH (20:57)
[2021-10-27] MEDS: Lithium Carbonate 300 MG CAPSULE PO SCH (08:39)
[2021-10-27] MEDS: *HR* LORazepam 0.5 MG TABLET PO SCH (08:39)
[2021-10-27] MEDS: OXcarbazepine 150 MG TABLET PO SCH (08:39)
[2021-10-27] MEDS: Fluticasone Propionate Nasal 50 MCG/SPRAY BOTTLE NS SCH (08:41)
[2021-10-27 09:13] VITALS: BP 132/85; PULSE 101; TEMP 97.7; O2SAT 99
== END 2021-10-27 13:42 | disposition home or self-care (01) | DRG 885 ==
LOC: EMEROOARM 10:48 → 1ANU 17:05
PROVIDERS: ADMIT Psychiatry & Neurology Psychiatry; ATTEND Psychiatry & Neurology Psychiatry